=== PATIENT | male | born 1975 | race African-American/Black ===

== ENCOUNTER 2017-02-05 12:44 | Emergency (ER) | payer BC ==
[~2017-02-05] VITALS: Ht 180.3 cm; Wt 126.1 kg
[2017-02-05] MEDS ORDERED: NORFLEX100 MG PO (14:42)
[2017-02-05] MEDS ORDERED: NAPROSYN500 MG PO (14:42)
[2017-02-05 14:57] VITALS: BP 138/70
== END 2017-02-05 14:58 | disposition home or self-care (01) ==
LOC: ER 12:44
DX: S16.1XXA Strain of muscle, fascia and tendon at neck level, initial encounter (principal); S00.93XA Contusion of unspecified part of head, initial encounter; F17.210 Nicotine dependence, cigarettes, uncomplicated; F10.99 Alcohol use, unspecified with unspecified alcohol-induced disorder; W22.8XXA Striking against or struck by other objects, initial encounter; Y93.89 Activity, other specified; Y92.89 Other specified places as the place of occurrence of the external cause; Y99.0 Civilian activity done for income or pay